=== PATIENT | female | born 1970 | race Caucasian/White ===

== ENCOUNTER 2018-09-22 13:35 | Observation (INO) | payer MEDICAID ==
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
[2018-09-22] MEDS ORDERED: Sodium Chloride 0.9% 2.5 ML Syringe FLUSH PRN (14:03)
[2018-09-22] MEDS ORDERED: Sodium Chloride 0.9% 10 ML Syringe FLUSH PRN (14:03)
[2018-09-22] MEDS ORDERED: LORazepam 2 MG/ML SDV IVPUSH ONE ×2 (14:41→15:27)
[2018-09-22] MEDS ORDERED: Ondansetron 4 MG/2 ML SDV IVPUSH ONE ×2 (14:53→17:49)
[2018-09-22] MEDS ORDERED: Morphine 2 MG/ML Syringe IVPUSH ONE (16:34)
[2018-09-22] MEDS ORDERED: Gadobenate Dimeglumine 529 MG/ML 20 ML SDV IVPUSH STA (19:02)
--- NOTE | 2018-09-22 19:02 | MR ---
INDICATION: Visual field defects TECHNIQUE: TOF and Spencer bolus MRA of the neck with 3D MIP reconstructions provided. All measurements are based on NASCET criteria. No comparisons. FINDINGS: Dominant right vertebral artery with small caliber left vertebral artery. The remainder of the visualized cervical carotids and vertebral arteries are unremarkable. Specifically, no evidence of suspicious narrowing or aneurysmal dilatation. IMPRESSION: Unremarkable MRA of the neck as far as visualized. Dictated by Jordan William MD @ 09/22/2018 7:01:12 PM Dictated by: Jordan William MD @ 09/22/2018 19:01:18 (Electronically Signed)
--- NOTE | 2018-09-22 19:02 | MR ---
INDICATION: Visual field defect TECHNIQUE: TOF MRA of COW with 3D MIP provided. No comparisons. FINDINGS: Dominant right vertebral artery is the primary supply the basilar artery. Small caliber, barely perceptible left vertebral artery is demonstrated which can be a developmental variant. origin of the right posterior cerebral artery. The remainder of the visualized first and second order intracranial vessels are unremarkable. Specifically, no suspicious narrowing or aneurysmal dilatation. IMPRESSION: Grossly unremarkable MRA of the head as far as visualized. Dictated by Jordan William MD @ 09/22/2018 7:00:16 PM Dictated by: Jordan William MD @ 09/22/2018 19:00:20 (Electronically Signed)
[2018-09-22] MEDS ORDERED: ALPRAZolam 0.5 MG Tab PO PRN ×2 (20:19→20:22)
[2018-09-23] MEDS: oxyCODONE 5 MG Tab PO PRN (07:02)
[2018-09-23 07:15] LABS: CHLORIDE,CL 105 mmol/L (98-107); SODIUM,NA 139 mmol/L (136-145)
[2018-09-23] MEDS: Aspirin 81 MG Tab.Chew PO SCH (09:02)
[2018-09-23 09:28] LABS: HEMOGLOBIN A1C 6.4 % (4.5-6.2)
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
[2018-09-23] MEDS ORDERED: metFORMIN 500 MG Tab PO SCH (17:00)
[2018-09-23] MEDS: Acetaminophen 325 MG Tab PO PRN (18:04)
[2018-09-23] MEDS: atorvaSTATin 40 MG Tab PO SCH (21:45)
[2018-09-24] MEDS: Acetaminophen 325 MG Tab PO PRN (06:53)
--- NOTE | 2018-09-24 07:22 | PCM.PN ---
- General Info Date of Service: 09/24/18 Admission Dx/Problem (Free Text): Admission Diagnosis/Problem Admission Diagnosis/Problem CVA, Cerebrovascular accident Subjective Update: The patient is a 48-year-old lady who had presented to the emergency department with a complaint of bilateral blurry vision and possible right arm weakness. The patient had been evaluated by ophthalmology and was found to have quadrantanopia. Subsequent MRI had revealed 2 right-sided thalamic strokes. Today the patient has has concerns with regards to her continued blurry vision. She has been somewhat tearful and depressed. The patient also today has been complaining of dizziness and lightheadedness. Functional Status: Reports: Pain Controlled, Tolerating Diet - Review of Systems General: Reports: No Symptoms HEENT: Reports: Headaches, Visual Changes Pulmonary: Reports: No Symptoms Cardiovascular: Reports: No Symptoms Gastrointestinal: Reports: No Symptoms Genitourinary: Reports: No Symptoms Musculoskeletal: Reports: No Symptoms Skin: Reports: No Symptoms Neurological: Reports: Dizziness Psychiatric: Reports: Depression - Patient Data Vitals - Most Recent: Last Vital Signs Temp 37.1 C 09/24/18 04:00 Pulse 78 09/24/18 04:00 Resp 16 09/24/18 04:00 BP 128/60 09/24/18 04:00 Pulse Ox 94 L 09/24/18 04:00 Weight - Most Recent: 97.885 kg I&O - Last 24 Hours: Intake & Output 09/23/18 09/24/18 09/24/18 22:59 06:59 14:59 Intake Total 1250 1617 Output Total 300 1000 Balance 950 617 Lab Results Last 24 Hours: Laboratory Results - last 24 hr 09/23/18 09/23/18 Range/Units 06:30 16:30 Hemoglobin A1c 6.4 H (4.5-6.2) % Urine Opiates Screen NEGATIVE (NEGATIVE) Ur Oxycodone Screen POSITIVE (NEGATIVE) Urine Methadone Screen NEGATIVE (NEGATIVE) Ur Barbiturates Screen NEGATIVE (NEGATIVE) Ur Phencyclidine Scrn NEGATIVE (NEGATIVE) Ur Amphetamine Screen NEGATIVE (NEGATIVE) U Methamphetamines Scrn NEGATIVE (NEGATIVE) U Benzodiazepines Scrn NEGATIVE (NEGATIVE) U Cocaine Metab Screen NEGATIVE (NEGATIVE) U Marijuana (THC) Screen NEGATIVE (NEGATIVE) Med Orders - Current: Current Medications Acetaminophen (Tylenol) 650 mg PO Q6H PRN PRN Reason: Pain Last Admin: 09/24/18 06:53 Dose: 650 mg Alprazolam (Xanax) 0.5 mg PO Q6H PRN PRN Reason: Anxiety Last Admin: 09/24/18 03:46 Dose: 0.5 mg Aspirin (Aspirin) 81 mg PO DAILY [facility] Last Admin: 09/23/18 09:02 Dose: 81 mg Atorvastatin Calcium (Lipitor) 80 mg PO BEDTIME [facility] Last Admin: 09/23/18 21:45 Dose: 80 mg Metformin HCl (Glucophage) 500 mg PO BIDMEALS [facility] Last Admin: 09/23/18 18:02 Dose: 500 mg Oxycodone HCl (Oxycodone) 5 mg PO Q4H PRN PRN Reason: Pain Last Admin: 09/23/18 07:02 Dose: 5 mg Sodium Chloride (Saline Flush) 10 ml FLUSH ASDIRECTED PRN PRN Reason: Keep Vein Open Sodium Chloride (Saline Flush) 2.5 ml FLUSH ASDIRECTED PRN PRN Reason: Keep Vein Open Discontinued Medications Alprazolam (Xanax) 49.4415 mg PO Q6H PRN PRN Reason: Anxiety Gadobenate Dimeglumine (Multihance) 20 ml IVPUSH ONETIME STA Stop: 09/22/18 19:03 Last Admin: 09/22/18 19:05 Dose: 16 ml Lorazepam (Ativan) 1 mg IVPUSH ONETIME ONE Stop: 09/22/18 14:42 Last Admin: 09/22/18 14:57 Dose: 1 mg Lorazepam (Ativan) 1 mg IVPUSH ONETIME ONE Stop: 09/22/18 15:28 Last Admin: 09/22/18 15:28 Dose: 1 mg Morphine Sulfate (Morphine) 4 mg IVPUSH ONETIME ONE Stop: 09/22/18 16:35 Last Admin: 09/22/18 16:45 Dose: 4 mg Ondansetron HCl (Zofran) 4 mg IVPUSH ONETIME ONE Stop: 09/22/18 14:54 Last Admin: 09/22/18 14:57 Dose: 4 mg Ondansetron HCl (Zofran) 4 mg IVPUSH ONETIME ONE Stop: 09/22/18 17:50 Last Admin: 09/22/18 18:13 Dose: 4 mg - Exam Quality Assessment: No: Supplemental Oxygen General: Alert, Oriented, Cooperative HEENT: Pupils Equal, Pupils Reactive, EOMI (No nystagmus), Mucous Membr. Moist/ [place] Neck: Supple, Trachea Midline Lungs: Clear to Auscultation, Normal Respiratory Effort Cardiovascular: Regular Rate, Regular Rhythm GI/Abdominal Exam: Normal Bowel Sounds, Soft, Non-Tender, No Distention (Female) Exam: Deferred Back Exam: Normal Inspection, Full Range of Motion Extremities: Normal Inspection, No Pedal Edema Skin: Warm, Dry, Intact Neurological: No New Focal Deficit Psy/Mental Status: Alert, Normal Affect, Normal Mood - Problem List & Annotations (1) CVA, Cerebrovascular accident SNOMED Code(s): 073407839 Code(s): I63.9 - CEREBRAL INFARCTION, UNSPECIFIED Status: Acute Priority : High Current Visit: Yes (2) Hypertension SNOMED Code(s): 59731852 Code(s): I10 - ESSENTIAL (PRIMARY) HYPERTENSION Status: Acute Priority: High Current Visit: Yes Qualifiers: Hypertension type: essential hypertension Qualified Code(s): I10 - Essential (primary) hypertension (3) Quadrantanopia SNOMED Code(s): 36249373 Code(s): H53.469 - HOMONYMOUS BILATERAL FIELD DEFECTS, UNSPECIFIED SIDE Status: Acute Priority: High Current Visit: Yes Qualifiers: Laterality: unspecified laterality Qualified Code(s): H53.469 - Homonymous bilateral field defects, unspecified side (4) Diarrhea SNOMED Code(s): 17225210 Code(s): R19.7 - DIARRHEA, UNSPECIFIED Status: Acute Priority: High Current Visit: Yes Qualifiers: Diarrhea type: unspecified type Qualified Code(s): R19.7 - Diarrhea, unspecified (5) Vision changes SNOMED Code(s): 291751247 Code(s): H53.9 - UNSPECIFIED VISUAL DISTURBANCE Status: Acute Priority: High Current Visit: Yes - Problem List Review Problem List Initiated/Reviewed/Updated: Yes - Plan Plan:: Assessment: #1. Acute ischemic stroke involving the posterior right hippocampus and right thalamus #2. Blurry vision #3. Prediabetes #4. Elevated BP Plan: #1. Admit to the floor for observation. Cardiac telemetry. Vitals per floor. Full code. #2. Aspirin 81mg PO daily #3. Atorvastatin 80mg PO qhs #4. Hgb A1c indicates 6.4% so she is by definition pre-diabetic. Will start on Metformin 500mg PO BID #5. Follow up on urine drug screen which hasn't been collected yet #6. Patient will be monitored for today. Will allow for permissive HTN. She can be started on an antihypertensive by her PCP at the outpatient visit. She will also follow up with neurology. The patient is a 48-year-old lady who had ischemic stroke of the right posterior hippocampus and right thalamus. She also has had right superior quadrantanopsia. The patient has some dizziness and as a result of this I have ordered meclizine 25 mg by mouth twice a day as necessary for her dizziness. Also the patient's blood pressure will be controlled with the use of losartan 25 mg by mouth daily. I've encouraged patient to ambulate. Likely she'll need PT OT to help with her dizziness at this presented be chronic. With regards to the patient's diarrhea encouraged observation for this and allow to resolve on its own. Meantime the patient will be monitored with her vital signs in order to keep her blood pressures less than 130 mmHg systolic. Repeat laboratory studies a been ordered.
[2018-09-24] MEDS: metFORMIN 500 MG Tab PO SCH (07:58)
[2018-09-24] MEDS: Meclizine 25 MG Tab PO PRN (07:58)
[2018-09-24] MEDS: Aspirin 81 MG Tab.Chew PO SCH (07:59)
[2018-09-24] MEDS: Losartan 50 MG Tab PO SCH (12:57)
[2018-09-24] MEDS: atorvaSTATin 40 MG Tab PO SCH (20:10)
[2018-09-25] MEDS: Meclizine 25 MG Tab PO PRN (02:37)
[2018-09-25] MEDS: Acetaminophen 325 MG Tab PO PRN (04:08)
[2018-09-25 06:44] LABS: CHLORIDE,CL 102 mmol/L (98-107); SODIUM,NA 136 mmol/L (136-145)
[2018-09-25] MEDS: metFORMIN 500 MG Tab PO SCH (07:58)
[2018-09-25] MEDS: oxyCODONE 5 MG Tab PO PRN (07:58)
[2018-09-25] MEDS: Losartan 50 MG Tab PO SCH (08:00)
[2018-09-25] MEDS: Aspirin 81 MG Tab.Chew PO SCH (08:01)
--- NOTE | 2018-09-25 09:53 | MR ---
EXAM DATE: 09/22/18 PATIENT'S AGE: 48 Patient: GRETCHEN ALVARADO Facility: [facility] Site . Site : 1970 Study: MRI-Head W/ and W/O Cont [id number] 6:23:11 PM Ordering Physician: Matt Castro Final Report: Indication: Visual field defect. Technique: Noncontrast sagittal T1, axial FLAIR, T2, diffusion, post contrast T1 weighted sequences are provided. No comparisons. Findings: There is a 1 centimeter region of restricted diffusion involving the posterior right hippocampus with a 13 millimeter region of restricted diffusion involving the right thalamus. These are compatible with acute infarcts. The ventricles, sulci and gyri are normal size, shape and contour for age. The midline structures are centrally located with no evidence of shift. There are no suspicious intra or extra-axial fluid collections. The post-contrast sequences are limited due to patient motion. No convincing suspicious regions of abnormal parenchymal enhancement. Expected flow voids in the cavernous carotids and basilar artery. Minimal scattered foci of increased T2 signal in the white matter of both cerebral hemispheres that is nonspecific. Impression: 1. Acute infarcts of the posterior right hippocampus and right thalamus. 2. Minimal scattered supratentorial white matter change that is non-specific. Differential considerations include changes related to diabetes, hypertension, collagen vascular disease or migranous headaches. 3. Preliminary results were called to ordering doctor at 1655 hours. Dictated by Jordan William MD @ 09/22/2018 6:58:50 PM Dictated by: Jordan William MD @ 09/22/2018 18:59:09 Signed by: Jordan William MD @09/22/2018 6:59:09 PM (Electronic Signature) Report Signed by Proxy. [facility]
--- NOTE | 2018-09-25 09:53 | PCM.DCSUM1 ---
<Salinas Carmona - Last Filed: 09/25/18 09:49> Discharge Summary - Hospital Course Free Text/Narrative:: Admission date: 09/23/2018 Discharge date: 09/25/2018 Admission diagnosis: #1. Acute ischemic stroke involving the posterior right hippocampus and right thalamus #2. Blurry vision #3. Prediabetes #4. Elevated BP Discharge diagnosis: #1. Acute ischemic stroke involving the posterior right hippocampus and right thalamus #2. Blurry vision #3. Prediabetes #4. HTN Hospital course: 48F presented to the ER w/ concerns of blurry vision and right arm weakness found to have findings as stated above on MRI. She was admitted primarily for observation. Patient did have an elevated BP, was started on losartan for this. Patient stated that her R arm felt uncomfortable secondary to the IV placement, rather than true weakness. Neuro exam was unremarkable aside from her continued complaints of left eye vision loss. She was discharged home and advised to take medications as prescribed, and to f/u with ophthalmology as scheduled along with establishing with a primary care provider. Return precautions were discussed. Discharge medications: #1. Aspirin 81mg PO daily #2. Losartan 25mg PO daily #3. Metformin 500mg PO BID (HgbA1c 6.4%) #4. Atorvastatin 80mg PO qhs - Discharge Data Discharge Date: 09/25/18 Discharge Disposition: Home, Self-Care 01 Condition: Fair - Patient Instructions Diet: Usual Diet as Tolerated Activity: As Tolerated Notify Provider of: Fever, Increased Pain, Nausea and/or Vomiting Other/Special Instructions: return if you experience worsening vision, numbness or tingling, confusion - Discharge Plan Prescriptions/Med Rec: Aspirin 81 mg PO DAILY 30 Days #30 tab.chew atorvaSTATin [Lipitor] 80 mg PO BEDTIME 30 Days #60 tablet Losartan [Cozaar] 25 mg PO DAILY 30 Days #30 tablet metFORMIN [Glucophage] 500 mg PO BID 30 Days #60 tablet Home Medications: Home Meds Aspirin 81 mg PO DAILY 30 Days #30 tab.chew 09/25/18 [Rx] Losartan [Cozaar] 25 mg PO DAILY 30 Days #30 tablet 09/25/18 [Rx] atorvaSTATin [Lipitor] 80 mg PO BEDTIME 30 Days #60 tablet 09/25/18 [Rx] metFORMIN [Glucophage] 500 mg PO BID 30 Days #60 tablet 09/25/18 [Rx] Patient Handouts: Glipizide; Metformin tablets, Losartan tablets, Transient Ischemic Attack, [id number], Aspirin and Your Heart, Atorvastatin tablets Forms: ED Department Discharge Referrals: Dewayne Burnett [Ordering Only Provider] - 10/06/18 9:00 am () Becki Trevizo MD [Physician] - 10/04/18 10:00 am PCP,Unknown [Ordering Only Provider] - - Discharge Summary/Plan Comment DC Time >30 min.: No - Patient Data Vitals - Most Recent: Last Vital Signs Temp 36.6 C 09/25/18 08:00 Pulse 75 09/25/18 08:00 Resp 18 09/25/18 08:00 BP 127/63 09/25/18 08:00 Pulse Ox 96 09/25/18 08:00 Weight - Most Recent: 97.885 kg I&O - Last 24 hours: Intake & Output 09/24/18 09/25/18 09/25/18 22:59 06:59 14:59 Intake Total 540 1160 Output Total 1050 1200 Balance -510 -40 Lab Results - Last 24 hrs: Laboratory Results - last 24 hr 09/25/18 09/25/18 Range/Units 06:02 06:02 WBC 12.61 H (4.0-11.0) K/uL RBC 4.99 (4.30-5.90) M/uL Hgb 14.7 (12.0-16.0) g/dL Hct 45.0 (36.0-46.0) % MCV 90.2 (80.0-98.0) fL MCH 29.5 (27.0-32.0) pg MCHC 32.7 (31.0-37.0) g/dL RDW Std Deviation 42.3 (28.0-62.0) fl RDW Coeff of Sarah 13 (11.0-15.0) % Plt Count 320 (150-400) K/uL MPV 10.80 (7.40-12.00) fL Add Manual Diff YES Neutrophils % (Manual) 68 (48.0-80.0) % Lymphocytes % (Manual) 21 (16.0-40.0) % Monocytes % (Manual) 5 (0.0-15.0) % Eosinophils % (Manual) 6 (0.0-7.0) % Nucleated RBC % 0.0 /100WBC Absolute Seg Neuts 8.6 H (1.4-5.7) Lymphocytes # (Manual) 2.6 H (0.6-2.4) Monocytes # (Manual) 0.6 (0.0-0.8) Eosinophils # (Manual) 0.8 H (0.0-0.7) Nucleated RBCs # 0 K/uL Sodium 136 (136-145) mmol/L Potassium 4.6 (3.5-5.1) mmol/L Chloride 102 (98-107) mmol/L Carbon Dioxide 28.7 (21.0-32.0) mmol/L BUN 14 (7.0-18.0) mg/dL Creatinine 0.7 (0.6-1.0) mg/dL Est Cr Clr Drug Dosing 94.29 mL/min Estimated GFR (MDRD) > 60.0 ml/min Glucose 109 H (74-106) mg/dL Calcium 9.9 (8.5-10.1) mg/dL Med Orders - Current: Current Medications Acetaminophen (Tylenol) 650 mg PO Q6H PRN PRN Reason: Pain Last Admin: 09/25/18 04:08 Dose: 650 mg Alprazolam (Xanax) 0.5 mg PO Q6H PRN PRN Reason: Anxiety Last Admin: 09/24/18 03:46 Dose: 0.5 mg Aspirin (Aspirin) 81 mg PO DAILY [facility] Last Admin: 09/25/18 08:01 Dose: 81 mg Atorvastatin Calcium (Lipitor) 80 mg PO BEDTIME [facility] Last Admin: 09/24/18 20:10 Dose: 80 mg Losartan Potassium (Cozaar) 25 mg PO DAILY [facility] Last Admin: 09/25/18 08:00 Dose: 25 mg Meclizine HCl (Antivert) 25 mg PO BID PRN PRN Reason: vertigo Last Admin: 09/25/18 02:37 Dose: 25 mg Metformin HCl (Glucophage) 500 mg PO DAILY@0800 [facility] Last Admin: 09/25/18 07:58 Dose: 500 mg Oxycodone HCl (Oxycodone) 5 mg PO Q4H PRN PRN Reason: Pain Last Admin: 09/25/18 07:58 Dose: 5 mg Sodium Chloride (Saline Flush) 10 ml FLUSH ASDIRECTED PRN PRN Reason: Keep Vein Open Sodium Chloride (Saline Flush) 2.5 ml FLUSH ASDIRECTED PRN PRN Reason: Keep Vein Open Discontinued Medications Alprazolam (Xanax) 49.4415 mg PO Q6H PRN PRN Reason: Anxiety Gadobenate Dimeglumine (Multihance) 20 ml IVPUSH ONETIME STA Stop: 09/22/18 19:03 Last Admin: 09/22/18 19:05 Dose: 16 ml Lorazepam (Ativan) 1 mg IVPUSH ONETIME ONE Stop: 09/22/18 14:42 Last Admin: 09/22/18 14:57 Dose: 1 mg Lorazepam (Ativan) 1 mg IVPUSH ONETIME ONE Stop: 09/22/18 15:28 Last Admin: 09/22/18 15:28 Dose: 1 mg Metformin HCl (Glucophage) 500 mg PO BIDMEALS [facility] Last Admin: 09/23/18 18:02 Dose: 500 mg Morphine Sulfate (Morphine) 4 mg IVPUSH ONETIME ONE Stop: 09/22/18 16:35 Last Admin: 09/22/18 16:45 Dose: 4 mg Ondansetron HCl (Zofran) 4 mg IVPUSH ONETIME ONE Stop: 09/22/18 14:54 Last Admin: 09/22/18 14:57 Dose: 4 mg Ondansetron HCl (Zofran) 4 mg IVPUSH ONETIME ONE Stop: 09/22/18 17:50 Last Admin: 09/22/18 18:13 Dose: 4 mg <Trevon Saleem - Last Filed: 09/25/18 11:48> Discharge Summary - Hospital Course HPI Initial Comments: I have seen and examined the patient independently of medical device engineer. I agree with the assessment and plan of care as outlined for this patient by the resident. Please see orders. The patient's primary concern at this point is secondary prevention for stroke. The patient is to follow-up with neurology as scheduled. - Discharge Diagnosis/Problem(s) (1) CVA, Cerebrovascular accident SNOMED Code(s): 092171086 ICD Code: I63.9 - CEREBRAL INFARCTION, UNSPECIFIED Status: Acute Priority : High Current Visit: Yes (2) Hypertension SNOMED Code(s): 07401012 ICD Code: I10 - ESSENTIAL (PRIMARY) HYPERTENSION Status: Acute Priority: High Current Visit: Yes Qualifiers: Hypertension type: essential hypertension Qualified Code(s): I10 - Essential (primary) hypertension (3) Quadrantanopia SNOMED Code(s): 17178746 ICD Code: H53.469 - HOMONYMOUS BILATERAL FIELD DEFECTS, UNSPECIFIED SIDE Status: Acute Priority: High Current Visit: Yes Qualifiers: Laterality: unspecified laterality Qualified Code(s): H53.469 - Homonymous bilateral field defects, unspecified side (4) Diarrhea SNOMED Code(s): 01489894 ICD Code: R19.7 - DIARRHEA, UNSPECIFIED Status: Acute Priority: High Current Visit: Yes Qualifiers: Diarrhea type: unspecified type Qualified Code(s): R19.7 - Diarrhea, unspecified (5) Vision changes SNOMED Code(s): 145956767 ICD Code: H53.9 - UNSPECIFIED VISUAL DISTURBANCE Status: Acute Priority: High Current Visit: Yes - Patient Data Vitals - Most Recent: Last Vital Signs Temp 36.6 C 09/25/18 08:00 Pulse 75 09/25/18 08:00 Resp 18 09/25/18 08:00 BP 127/63 09/25/18 08:00 Pulse Ox 96 09/25/18 08:00 I&O - Last 24 hours: Intake & Output 09/24/18 09/25/18 09/25/18 22:59 06:59 14:59 Intake Total 540 1160 Output Total 1050 1200 Balance -510 -40 Lab Results - Last 24 hrs: Laboratory Results - last 24 hr 09/25/18 09/25/18 Range/Units 06:02 06:02 WBC 12.61 H (4.0-11.0) K/uL RBC 4.99 (4.30-5.90) M/uL Hgb 14.7 (12.0-16.0) g/dL Hct 45.0 (36.0-46.0) % MCV 90.2 (80.0-98.0) fL MCH 29.5 (27.0-32.0) pg MCHC 32.7 (31.0-37.0) g/dL RDW Std Deviation 42.3 (28.0-62.0) fl RDW Coeff of Sarah 13 (11.0-15.0) % Plt Count 320 (150-400) K/uL MPV 10.80 (7.40-12.00) fL Add Manual Diff YES Neutrophils % (Manual) 68 (48.0-80.0) % Lymphocytes % (Manual) 21 (16.0-40.0) % Monocytes % (Manual) 5 (0.0-15.0) % Eosinophils % (Manual) 6 (0.0-7.0) % Nucleated RBC % 0.0 /100WBC Absolute Seg Neuts 8.6 H (1.4-5.7) Lymphocytes # (Manual) 2.6 H (0.6-2.4) Monocytes # (Manual) 0.6 (0.0-0.8) Eosinophils # (Manual) 0.8 H (0.0-0.7) Nucleated RBCs # 0 K/uL Sodium 136 (136-145) mmol/L Potassium 4.6 (3.5-5.1) mmol/L Chloride 102 (98-107) mmol/L Carbon Dioxide 28.7 (21.0-32.0) mmol/L BUN 14 (7.0-18.0) mg/dL Creatinine 0.7 (0.6-1.0) mg/dL Est Cr Clr Drug Dosing 94.29 mL/min Estimated GFR (MDRD) > 60.0 ml/min Glucose 109 H (74-106) mg/dL Calcium 9.9 (8.5-10.1) mg/dL Med Orders - Current: Current Medications Acetaminophen (Tylenol) 650 mg PO Q6H PRN PRN Reason: Pain Last Admin: 09/25/18 04:08 Dose: 650 mg Alprazolam (Xanax) 0.5 mg PO Q6H PRN PRN Reason: Anxiety Last Admin: 09/24/18 03:46 Dose: 0.5 mg Aspirin (Aspirin) 81 mg PO DAILY [facility] Last Admin: 09/25/18 08:01 Dose: 81 mg Atorvastatin Calcium (Lipitor) 80 mg PO BEDTIME [facility] Last Admin: 09/24/18 20:10 Dose: 80 mg Losartan Potassium (Cozaar) 25 mg PO DAILY [facility] Last Admin: 09/25/18 08:00 Dose: 25 mg Meclizine HCl (Antivert) 25 mg PO BID PRN PRN Reason: vertigo Last Admin: 09/25/18 02:37 Dose: 25 mg Metformin HCl (Glucophage) 500 mg PO DAILY@0800 [facility] Last Admin: 09/25/18 07:58 Dose: 500 mg Oxycodone HCl (Oxycodone) 5 mg PO Q4H PRN PRN Reason: Pain Last Admin: 09/25/18 07:58 Dose: 5 mg Sodium Chloride (Saline Flush) 10 ml FLUSH ASDIRECTED PRN PRN Reason: Keep Vein Open Sodium Chloride (Saline Flush) 2.5 ml FLUSH ASDIRECTED PRN PRN Reason: Keep Vein Open Discontinued Medications Alprazolam (Xanax) 49.4415 mg PO Q6H PRN PRN Reason: Anxiety Gadobenate Dimeglumine (Multihance) 20 ml IVPUSH ONETIME STA Stop: 09/22/18 19:03 Last Admin: 09/22/18 19:05 Dose: 16 ml Lorazepam (Ativan) 1 mg IVPUSH ONETIME ONE Stop: 09/22/18 14:42 Last Admin: 09/22/18 14:57 Dose: 1 mg Lorazepam (Ativan) 1 mg IVPUSH ONETIME ONE Stop: 09/22/18 15:28 Last Admin: 09/22/18 15:28 Dose: 1 mg Metformin HCl (Glucophage) 500 mg PO BIDMEALS [facility] Last Admin: 09/23/18 18:02 Dose: 500 mg Morphine Sulfate (Morphine) 4 mg IVPUSH ONETIME ONE Stop: 09/22/18 16:35 Last Admin: 09/22/18 16:45 Dose: 4 mg Ondansetron HCl (Zofran) 4 mg IVPUSH ONETIME ONE Stop: 09/22/18 14:54 Last Admin: 09/22/18 14:57 Dose: 4 mg Ondansetron HCl (Zofran) 4 mg IVPUSH ONETIME ONE Stop: 09/22/18 17:50 Last Admin: 09/22/18 18:13 Dose: 4 mg
== END 2018-09-25 12:00 | disposition home or self-care (01) ==
LOC: MW.ED 13:35 → MW.MS 19:42
PROVIDERS: ADMIT Internal Medicine; ATTEND Internal Medicine
DX: I63.9 Cerebral infarction, unspecified (principal); H53.8 Other visual disturbances; H53.461 Homonymous bilateral field defects, right side; I10 Essential (primary) hypertension; R73.03 Prediabetes; R19.7 Diarrhea, unspecified; Z79.82 Long term (current) use of aspirin; Z88.8 Allergy status to other drugs, medicaments and biological substances
CPT/HCPCS: 36415; 70544; 70549; 70553; 80048; 80061; 80305; 82962; 83036; 85025; 96374; 96375; 96376; 99285; A9270; A9577; J2060; J2270; J2405; G0378

== ENCOUNTER 2022-10-25 14:06 | Emergency (ER) | payer SELFPAY ==
[2022-10-25] MEDS ORDERED: Ketorolac 30 MG/ML SDV IM ONE (14:44)
[2022-10-25] MEDS ORDERED: Acetaminophen 325 MG Tab PO ONE (14:44)
[2022-10-25] MEDS ORDERED: Dexamethasone 10 MG/ML SDV PO ONE (14:44)
[2022-10-25] MEDS ORDERED: Prochlorperazine 10 MG Tab PO ONE (14:46)
[2022-10-25 15:04] LABS: CORONAVIRUS COVID-19 NAA NEGATIVE (NEGATIVE); INFLUENZA A NAA NEGATIVE (NEGATIVE); INFLUENZA B NAA NEGATIVE (NEGATIVE); RESPIRATORY SYNCYTIAL VIR NAA NEGATIVE (NEGATIVE)
== END 2022-10-25 15:45 | disposition home or self-care (01) ==
LOC: MW.ED 14:06
DX: R51.9 Headache, unspecified (principal); R11.0 Nausea; R10.13 Epigastric pain; I10 Essential (primary) hypertension; E11.9 Type 2 diabetes mellitus without complications; Z88.8 Allergy status to other drugs, medicaments and biological substances; Z20.822 Contact with and (suspected) exposure to COVID-19
CPT/HCPCS: 0241U; 96372; 99284; A9270; J1885; J8540; Q0164

== ENCOUNTER 2022-11-11 15:45 | Observation (INO) | payer SELFPAY ==
[~2022-11-11 15:45] MED LIST: Sodium Chloride 0.9% 10 ML Syringe FLUSH PRN; Sodium Chloride 0.9% 2.5 ML Syringe FLUSH PRN
[2022-11-11] MEDS ORDERED: Ondansetron 4 MG/2 ML SDV IVPUSH ONE ×2 (15:47→19:19)
[2022-11-11] MEDS ORDERED: Morphine 4 MG/ML Syringe IVPUSH ONE (15:47)
[2022-11-11] MEDS ORDERED: Aspirin 81 MG Tab.Chew PO ONE (15:47)
[2022-11-11 16:23] LABS: CARBON DIOXIDE,CO2 23.9 mmol/L (21.0-32.0); POTASSIUM,K 3.8 mmol/L (3.5-5.1)
[2022-11-11 17:44] LABS: HEMOGLOBIN A1C 12.9 %
[2022-11-11] MEDS ORDERED: Iopamidol 755 MG/ML 500 ML Multipack Bottle IVPUSH STA (18:32)
[2022-11-11] MEDS ORDERED: Glucagon,Human Recombinant 1 MG Vial IM PRN (18:47)
[2022-11-11] MEDS ORDERED: Insulin Regular, Human 100 Units/ML 10 ML Vial SUBCUT ONE (18:47)
[2022-11-11] MEDS ORDERED: 50% Dextrose in Water 50 ML Syringe IVPUSH PRN (18:47)
[2022-11-11] MEDS ORDERED: Sodium Chloride 0.9% 1,000 ML IV ONE (18:52)
[2022-11-11] MEDS ORDERED: cefTRIAXone 1 GM in Sodium Chloride 0.9% 50 ML IV ONE (18:53)
[2022-11-11] MEDS ORDERED: cefTRIAXone 1 GM Vial ONE (19:00)
[2022-11-11] MEDS ORDERED: Sodium Chloride 0.9% 50 ML ONE (19:00)
[2022-11-11] MEDS ORDERED: Insulin Glargine,Hum.Rec.Anlog 100 UNIT/ML 3 ML Pen SUBCUT SCH (21:00)
[2022-11-11] MEDS ORDERED: Acetaminophen 325 MG Tab PO PRN (21:52)
[2022-11-11] MEDS ORDERED: Ondansetron 4 MG/2 ML SDV IVPUSH PRN (21:52)
[2022-11-11] MEDS ORDERED: Insulin Aspart 100 Units/ML 3 ML Pen SUBCUT ONE (22:41)
[2022-11-12] MEDS ORDERED: Sodium Chloride 0.9% 1,000 ML IV SCH ×2 (00:15)
[2022-11-12] MEDS: Insulin Aspart 100 Units/ML 3 ML Pen SUBCUT SCH ×2 (02:29→07:43)
[2022-11-12 06:45] LABS: CARBON DIOXIDE,CO2 25.9 mmol/L (21.0-32.0); POTASSIUM,K 3.7 mmol/L (3.5-5.1)
[2022-11-12] MEDS ORDERED: Insulin Aspart 100 Units/ML 3 ML Pen SUBCUT SCH (11:30)
[2022-11-12] MEDS ORDERED: cefTRIAXone 1 GM in Sodium Chloride 0.9% 50 ML IV SCH (18:00)
== END 2022-11-12 15:10 | disposition home or self-care (01) ==
LOC: MW.ED 15:45 → MW.ICU 19:28
PROVIDERS: ADMIT Internal Medicine; ATTEND Internal Medicine
DX: R07.2 Precordial pain (principal); E11.9 Type 2 diabetes mellitus without complications; N39.0 Urinary tract infection, site not specified; I10 Essential (primary) hypertension; E78.00 Pure hypercholesterolemia, unspecified; Z79.4 Long term (current) use of insulin; Z79.899 Other long term (current) drug therapy; Z88.8 Allergy status to other drugs, medicaments and biological substances
CPT/HCPCS: 36415; 71045; 71045-26; 71275; 71275-26; 80048; 80053; 81001; 82947; 83036; 84484; 85025; 85379; 87086; 87088; 87186; 93005; 96361; 96365; 96375; 96376; 99221; 99285-25; A9270-GY; G0378; J0696; J1815-GY; J2270; J2405; J3490; J7030; J7050; Q9967

== ENCOUNTER 2023-08-13 08:56 | Observation (INO) | payer SELFPAY ==
[2023-08-13] MEDS ORDERED: Sodium Chloride 0.9% 1,000 ML IV ONE ×2 (09:06→10:28)
[2023-08-13 09:28] LABS: BASE EXCESS VENOUS -5.4 (-2.0-3.0); PH,VENOUS 7.4 (7.31-7.41)
[2023-08-13 09:36] LABS: BASOPHILS ABSOLUTE AUTO 0.08 K/uL (0.00-0.20); BASOPHILS PERCENT AUTO 0.6 % (0.0-1.0); EOSINOPHILS ABSOLUTE AUTO 0.09 K/uL (0.00-0.45); EOSINOPHILS PERCENT AUTO 0.7 % (0.0-6.0); HEMATOCRIT 44.3 % (37.0-47.0); HEMOGLOBIN 15.3 g/dL (12.0-16.0); IMMATURE GRAN ABSOLUTE AUTO 0.13 K/uL (0.00-0.05); LYMPHOCYTES ABSOLUTE AUTO 2.94 K/uL (1.00-4.80); LYMPHOCYTES PERCENT AUTO 23.6 % (24.0-44.0); MEAN CORPUSCULAR HEMOGLOBIN 29.6 pg (28.0-32.0); MEAN CORPUSCULAR HGB CONC 34.5 g/dL (32.0-36.0); MEAN CORPUSCULAR VOLUME 85.7 fL (83.0-99.0); MEAN PLATELET VOLUME 10.8 fL (9.4-12.3); MONOCYTES ABSOLUTE AUTO 0.89 K/uL (0.00-0.80); MONOCYTES PERCENT AUTO 7.1 % (0.0-8.0); NEUTROPHILS ABSOLUTE AUTO 8.34 K/uL (1.80-7.70); PLATELET COUNT,PLT 279 K/uL (150-400); RED BLOOD CELL COUNT 5.17 M/uL (4.10-5.30); WHITE BLOOD CELL COUNT,WBC 12.47 K/uL (3.9-11.3)
[2023-08-13 09:47] LABS: INR 1.07 (0.86-1.11); PTT,PARTIAL THROMBOPLSTIN TIME 37.1 SEC (23.9-30.7)
[2023-08-13 09:57] LABS: A/G RATIO 0.8 (0.9-1.6); ALANINE AMINOTRANSFERASE,ALT 54 IU/L (14-63); ALBUMIN 3.1 g/dL (3.4-5.0); ALKALINE PHOSPHATASE 97 U/L (46-116); ASPARTATE AMNIOTRANSFERASE,AST 34 IU/L (15-37); BILIRUBIN TOTAL 0.8 mg/dL (0.2-1.0); BLOOD UREA NITROGEN,BUN 18 mg/dL (7.0-18.0); CARBON DIOXIDE,CO2 19.3 mmol/L (21.0-32.0); CHLORIDE,CL 97 mmol/L (98-107); CREATINE KINASE,CK 238 U/L (26-308); CREATININE 0.8 mg/dL (0.6-1.0); EST CRCL DRUG DOSING (CG) 78.18 mL/min; ESTIMATED GFR 88 mL/min (>60); ETHANOL BLOOD MEDICAL <3 mg/dL; GLUCOSE RANDOM 339 mg/dL (74-106); LIPASE 26 U/L (16-77); MAGNESIUM 1.5 mg/dL (1.8-2.4); POTASSIUM,K 3.8 mmol/L (3.5-5.1); PROTEIN TOTAL,TP 7.1 g/dL (6.4-8.2); SODIUM,NA 133 mmol/L (136-145)
[2023-08-13] MEDS ORDERED: Insulin Regular, Human 100 Units/ML 10 ML Vial IVPUSH ONE (10:27)
[2023-08-13] MEDS ORDERED: Magnesium Sulfate/Water 2 GM in Premix Bag 1 BAG IV ONE (10:28)
[2023-08-13 10:47] LABS: LACTIC ACID 1.1 mmol/L (0.4-2.0)
[2023-08-13] MEDS ORDERED: Iopamidol 755 MG/ML 500 ML Multipack Bottle IVPUSH STA (12:23)
[2023-08-13 13:47] LABS: CALCIUM 8.5 mg/dL (8.5-10.1); CARBON DIOXIDE,CO2 20.6 mmol/L (21.0-32.0); CREATININE 0.8 mg/dL (0.6-1.0); EST CRCL DRUG DOSING (CG) 78.18 mL/min; POTASSIUM,K 3.9 mmol/L (3.5-5.1)
[2023-08-13] MEDS ORDERED: Glucagon,Human Recombinant 1 MG Vial IM PRN ×2 (16:03→17:22)
[2023-08-13] MEDS ORDERED: Polyethylene Glycol 3350 Powder 17 GM Packet PO PRN (16:03)
[2023-08-13] MEDS ORDERED: 50% Dextrose in Water 50 ML Syringe IVPUSH PRN ×2 (16:03→17:22)
[2023-08-13] MEDS ORDERED: Enoxaparin 40 MG/0.4 ML Syringe SUBCUT SCH (16:15)
[2023-08-13] MEDS ORDERED: Pantoprazole 40 MG in Sodium Chloride 0.9% 10 ML IVPUSH SCH (16:15)
[2023-08-13] MEDS: Insulin Aspart 100 Units/ML 3 ML Pen SUBCUT SCH (17:25)
[2023-08-13] MEDS ORDERED: Insulin Glargine,Hum.Rec.Anlog 100 UNIT/ML 3 ML Pen SUBCUT SCH (21:00)
[2023-08-13] MEDS ORDERED: Insulin Aspart 100 Units/ML 3 ML Pen SUBCUT ONE (21:00)
[2023-08-13] MEDS: Sodium Chloride 0.9% 1,000 ML IV SCH (21:30)
[2023-08-13 21:33] LABS: CALCIUM 8.5 mg/dL (8.5-10.1); CARBON DIOXIDE,CO2 18.9 mmol/L (21.0-32.0); EST CRCL DRUG DOSING (CG) 62.54 mL/min; POTASSIUM,K 3.7 mmol/L (3.5-5.1)
[2023-08-14] MEDS ORDERED: Insulin Aspart 100 Units/ML 3 ML Pen SUBCUT ONE ×2 (00:55→05:29)
[2023-08-14 05:19] LABS: AMPHETAMINES SCREEN, URINE NEGATIVE (CUTOFF=500); BARBITURATE SCREEN,URINE NEGATIVE (CUTOFF=200); BENZODIAZEPINES SCREEN,URINE NEGATIVE (CUTOFF=150); BUPRENORPHINE SCREEN,URINE NEGATIVE (CUTOFF=10); METHADONE SCREEN, URINE NEGATIVE (CUTOFF=200); METHAMPHETAMINES SCREEN, URINE NEGATIVE (CUTOFF=500); OXYCODONE SCREEN,URINE NEGATIVE (CUT0FF=100); PCP SCREEN,URINE NEGATIVE (CUTOFF=25); THC SCREEN,URINE 20 NG/ML NEGATIVE (CUTOFF=50)
[2023-08-14] MEDS: Sodium Chloride 0.9% 1,000 ML IV SCH (05:47)
[2023-08-14 06:45] LABS: BASOPHILS ABSOLUTE AUTO 0.08 K/uL (0.00-0.20); BASOPHILS PERCENT AUTO 0.8 % (0.0-1.0); EOSINOPHILS ABSOLUTE AUTO 0.15 K/uL (0.00-0.45); EOSINOPHILS PERCENT AUTO 1.5 % (0.0-6.0); HEMATOCRIT 40.2 % (37.0-47.0); HEMOGLOBIN 13.6 g/dL (12.0-16.0); IMMATURE GRAN ABSOLUTE AUTO 0.09 K/uL (0.00-0.05); IMMATURE GRAN PERCENT AUTO 0.9 % (0.0-0.4); LYMPHOCYTES ABSOLUTE AUTO 2.85 K/uL (1.00-4.80); LYMPHOCYTES PERCENT AUTO 29.1 % (24.0-44.0); MEAN CORPUSCULAR HEMOGLOBIN 29.1 pg (28.0-32.0); MEAN CORPUSCULAR HGB CONC 33.8 g/dL (32.0-36.0); MEAN CORPUSCULAR VOLUME 85.9 fL (83.0-99.0); MEAN PLATELET VOLUME 10.8 fL (9.4-12.3); MONOCYTES ABSOLUTE AUTO 0.69 K/uL (0.00-0.80); NEUTROPHILS ABSOLUTE AUTO 5.94 K/uL (1.80-7.70); NEUTROPHILS PERCENT AUTO 60.7 % (41.0-71.0); PLATELET COUNT,PLT 246 K/uL (150-400); RED BLOOD CELL COUNT 4.68 M/uL (4.10-5.30)
[2023-08-14 07:17] LABS: A/G RATIO 0.8 (0.9-1.6); ALBUMIN 2.7 g/dL (3.4-5.0); BILIRUBIN TOTAL 0.5 mg/dL (0.2-1.0); CALCIUM 8.5 mg/dL (8.5-10.1); CARBON DIOXIDE,CO2 24.6 mmol/L (21.0-32.0); CREATININE 0.7 mg/dL (0.6-1.0); EST CRCL DRUG DOSING (CG) 89.34 mL/min; MAGNESIUM 1.6 mg/dL (1.8-2.4); POTASSIUM,K 3.5 mmol/L (3.5-5.1); PROTEIN TOTAL,TP 6.2 g/dL (6.4-8.2)
[2023-08-14] MEDS: Insulin Aspart 100 Units/ML 3 ML Pen SUBCUT SCH ×4 (07:41→11:44)
== END 2023-08-14 13:23 | disposition home or self-care (01) ==
LOC: MW.ED 08:56 → MW.MS 15:37
PROVIDERS: ADMIT Internal Medicine; ATTEND Internal Medicine
DX: E11.65 Type 2 diabetes mellitus with hyperglycemia (principal); M54.50 Low back pain, unspecified; M25.552 Pain in left hip; Z79.899 Other long term (current) drug therapy; Z88.9 Allergy status to unspecified drugs, medicaments and biological substances; W19.XXXA Unspecified fall, initial encounter
CPT/HCPCS: 36415; 70450; 71260; 72125; 72128; 74177; 80048; 80053; 80305; 80307; 82009; 82550; 82803; 82947; 83605; 83690; 83735; 84484; 85025; 85610; 85730; 93005; 96361; 96365; 96372; 96375; 99285; A9270; C9113; G0378; J1650; J1815; J3475; J3490; J7030; Q9967; 72131-26

== ENCOUNTER 2024-08-24 09:47 | Inpatient (IN) | payer MEDICAID ==
[2024-08-24 10:39] LABS: BASOPHILS ABSOLUTE AUTO 0.05 K/uL (0.00-0.20); BASOPHILS PERCENT AUTO 0.4 % (0.0-1.0); EOSINOPHILS PERCENT AUTO 0.9 % (0.0-6.0); HEMATOCRIT 46.2 % (37.0-47.0); HEMOGLOBIN 15.2 g/dL (12.0-16.0); IMMATURE GRAN ABSOLUTE AUTO 0.09 K/uL (0.00-0.05); IMMATURE GRAN PERCENT AUTO 0.8 % (0.0-0.4); LYMPHOCYTES ABSOLUTE AUTO 2.92 K/uL (1.00-4.80); LYMPHOCYTES PERCENT AUTO 25.3 % (24.0-44.0); MEAN CORPUSCULAR HEMOGLOBIN 29.4 pg (28.0-32.0); MEAN CORPUSCULAR HGB CONC 32.9 g/dL (32.0-36.0); MEAN CORPUSCULAR VOLUME 89.4 fL (83.0-99.0); MEAN PLATELET VOLUME 10.7 fL (9.4-12.3); MONOCYTES ABSOLUTE AUTO 0.66 K/uL (0.00-0.80); MONOCYTES PERCENT AUTO 5.7 % (0.0-8.0); NEUTROPHILS PERCENT AUTO 66.9 % (41.0-71.0); PLATELET COUNT,PLT 231 K/uL (150-400); RED BLOOD CELL COUNT 5.17 M/uL (4.10-5.30); WHITE BLOOD CELL COUNT,WBC 11.52 K/uL (3.9-11.3)
[2024-08-24 11:14] LABS: A/G RATIO 0.8 (0.9-1.6); ALBUMIN 3.3 g/dL (3.4-5.0); BILIRUBIN TOTAL 0.5 mg/dL (0.2-1.0); CALCIUM 9.4 mg/dL (8.5-10.1); CARBON DIOXIDE,CO2 28.8 mmol/L (21.0-32.0); CREATININE 0.7 mg/dL (0.6-1.0); EST CRCL DRUG DOSING (CG) 81.71 mL/min; POTASSIUM,K 4.1 mmol/L (3.5-5.1); PROTEIN TOTAL,TP 7.4 g/dL (6.4-8.2)
[2024-08-24 11:21] LABS: BILIRUBIN,URINE NEGATIVE (NEGATIVE); COLOR,URINE YELLOW; GLUCOSE,URINE NEGATIVE (NEGATIVE); KETONES,URINE 15 mg/dL (NEGATIVE); LEUKOCYTE ESTERASE,URINE TRACE (NEGATIVE); NITRITE,URINE POSITIVE (NEGATIVE); OCCULT BLOOD,URINE NEGATIVE (NEGATIVE); PROTEIN,URINE NEGATIVE (NEGATIVE); UROBILINOGEN,URINE 0.2 EU/dL (<2.0)
[2024-08-24 11:32] LABS: RBC,URINE 0-2 (0-2/HPF)
[2024-08-24 11:33] LABS: APPEARANCE,URINE CLOUDY; EPITHELIAL CELLS,URINE MODERATE (NONE-FEW)
[2024-08-24 11:34] LABS: BACTERIA,URINE 3+ (NEGATIVE)
[2024-08-24] MEDS ORDERED: Sodium Chloride 0.9% 2.5 ML Syringe FLUSH PRN (12:14)
[2024-08-24] MEDS ORDERED: Sodium Chloride 0.9% 10 ML Syringe FLUSH PRN (12:14)
[2024-08-24] MEDS: cefTRIAXone 1 GM Vial IM ONE (12:52)
[2024-08-24] MEDS: cefTRIAXone 1 GM in Sodium Chloride 0.9% 50 ML IV ONE (12:57)
[2024-08-24] MEDS ORDERED: Acetaminophen 325 MG Tab PO PRN (13:26)
[2024-08-24] MEDS ORDERED: Polyethylene Glycol 3350 Powder 17 GM Packet PO PRN (13:26)
[2024-08-24 13:54] LABS: HEMOGLOBIN A1C 8.6 %
[2024-08-24] MEDS ORDERED: 50% Dextrose in Water 50 ML Syringe IVPUSH PRN (14:01)
[2024-08-24] MEDS ORDERED: Glucagon,Human Recombinant 1 MG Vial IM PRN (14:01)
[2024-08-24] MEDS: Lisinopril 10 MG Tab PO SCH (14:28)
[2024-08-24] MEDS: Sertraline 50 MG Tab PO SCH (14:29)
[2024-08-24] MEDS: Non-Formulary Medication 1 Each (Lisinopril 20 MG Tablet) PO SCH (15:02)
[2024-08-24] MEDS: Insulin Aspart 100 Units/ML 3 ML Pen SUBCUT SCH (16:55)
[2024-08-24] MEDS: Insulin Glargine,Hum.Rec.Anlog 100 UNIT/ML 3 ML Pen SUBCUT SCH (20:36)
[2024-08-25 06:02] LABS: BASOPHILS ABSOLUTE AUTO 0.06 K/uL (0.00-0.20); BASOPHILS PERCENT AUTO 0.6 % (0.0-1.0); EOSINOPHILS ABSOLUTE AUTO 0.18 K/uL (0.00-0.45); EOSINOPHILS PERCENT AUTO 1.7 % (0.0-6.0); HEMATOCRIT 42.9 % (37.0-47.0); HEMOGLOBIN 14.2 g/dL (12.0-16.0); IMMATURE GRAN ABSOLUTE AUTO 0.06 K/uL (0.00-0.05); IMMATURE GRAN PERCENT AUTO 0.6 % (0.0-0.4); LYMPHOCYTES ABSOLUTE AUTO 3.77 K/uL (1.00-4.80); LYMPHOCYTES PERCENT AUTO 36.1 % (24.0-44.0); MEAN CORPUSCULAR HEMOGLOBIN 29.6 pg (28.0-32.0); MEAN CORPUSCULAR HGB CONC 33.1 g/dL (32.0-36.0); MEAN CORPUSCULAR VOLUME 89.6 fL (83.0-99.0); MEAN PLATELET VOLUME 11.2 fL (9.4-12.3); MONOCYTES ABSOLUTE AUTO 0.67 K/uL (0.00-0.80); MONOCYTES PERCENT AUTO 6.4 % (0.0-8.0); NEUTROPHILS ABSOLUTE AUTO 5.69 K/uL (1.80-7.70); NEUTROPHILS PERCENT AUTO 54.6 % (41.0-71.0); PLATELET COUNT,PLT 221 K/uL (150-400); RED BLOOD CELL COUNT 4.79 M/uL (4.10-5.30); WHITE BLOOD CELL COUNT,WBC 10.43 K/uL (3.9-11.3)
[2024-08-25 06:35] LABS: A/G RATIO 0.8 (0.9-1.6); BILIRUBIN TOTAL 0.4 mg/dL (0.2-1.0); CALCIUM 8.9 mg/dL (8.5-10.1); CARBON DIOXIDE,CO2 25.6 mmol/L (21.0-32.0); CREATININE 0.8 mg/dL (0.6-1.0); EST CRCL DRUG DOSING (CG) 71.5 mL/min; MAGNESIUM 1.9 mg/dL (1.8-2.4); POTASSIUM,K 3.8 mmol/L (3.5-5.1); PROTEIN TOTAL,TP 6.9 g/dL (6.4-8.2)
[2024-08-25] MEDS ORDERED: Sertraline 50 MG Tab PO SCH (09:00)
[2024-08-25] MEDS: cefTRIAXone 1 GM in Sodium Chloride 0.9% 50 ML IV SCH (11:51)
[2024-08-25] MEDS: Insulin Glargine,Hum.Rec.Anlog 100 UNIT/ML 3 ML Pen SUBCUT SCH (21:07)
[2024-08-26 05:53] LABS: BASOPHILS ABSOLUTE AUTO 0.07 K/uL (0.00-0.20); BASOPHILS PERCENT AUTO 0.7 % (0.0-1.0); EOSINOPHILS ABSOLUTE AUTO 0.26 K/uL (0.00-0.45); EOSINOPHILS PERCENT AUTO 2.6 % (0.0-6.0); HEMATOCRIT 44.3 % (37.0-47.0); HEMOGLOBIN 14.3 g/dL (12.0-16.0); IMMATURE GRAN ABSOLUTE AUTO 0.07 K/uL (0.00-0.05); IMMATURE GRAN PERCENT AUTO 0.7 % (0.0-0.4); LYMPHOCYTES ABSOLUTE AUTO 3.76 K/uL (1.00-4.80); LYMPHOCYTES PERCENT AUTO 37.6 % (24.0-44.0); MEAN CORPUSCULAR HEMOGLOBIN 29.2 pg (28.0-32.0); MEAN CORPUSCULAR HGB CONC 32.3 g/dL (32.0-36.0); MEAN CORPUSCULAR VOLUME 90.4 fL (83.0-99.0); MEAN PLATELET VOLUME 11.2 fL (9.4-12.3); MONOCYTES ABSOLUTE AUTO 0.63 K/uL (0.00-0.80); MONOCYTES PERCENT AUTO 6.3 % (0.0-8.0); NEUTROPHILS ABSOLUTE AUTO 5.21 K/uL (1.80-7.70); NEUTROPHILS PERCENT AUTO 52.1 % (41.0-71.0); PLATELET COUNT,PLT 202 K/uL (150-400)
[2024-08-26 06:22] LABS: A/G RATIO 0.8 (0.9-1.6); ALBUMIN 3.1 g/dL (3.4-5.0); BILIRUBIN TOTAL 0.3 mg/dL (0.2-1.0); CALCIUM 9.3 mg/dL (8.5-10.1); CARBON DIOXIDE,CO2 26.6 mmol/L (21.0-32.0); CREATININE 0.7 mg/dL (0.6-1.0); EST CRCL DRUG DOSING (CG) 81.71 mL/min; MAGNESIUM 1.9 mg/dL (1.8-2.4); POTASSIUM,K 4.3 mmol/L (3.5-5.1)
[2024-08-26] MEDS ORDERED: TOLTERODINE 2 MG PO SCH (09:00)
[2024-08-26] MEDS: Insulin Glargine,Hum.Rec.Anlog 100 UNIT/ML 3 ML Pen SUBCUT SCH (21:35)
[2024-08-27 07:54] LABS: BASOPHILS ABSOLUTE AUTO 0.05 K/uL (0.00-0.20); BASOPHILS PERCENT AUTO 0.5 % (0.0-1.0); EOSINOPHILS PERCENT AUTO 2.1 % (0.0-6.0); HEMATOCRIT 42.2 % (37.0-47.0); HEMOGLOBIN 14.3 g/dL (12.0-16.0); IMMATURE GRAN PERCENT AUTO 1.1 % (0.0-0.4); LYMPHOCYTES PERCENT AUTO 34.4 % (24.0-44.0); MEAN CORPUSCULAR HGB CONC 33.9 g/dL (32.0-36.0); MEAN CORPUSCULAR VOLUME 88.5 fL (83.0-99.0); MEAN PLATELET VOLUME 10.8 fL (9.4-12.3); MONOCYTES ABSOLUTE AUTO 0.55 K/uL (0.00-0.80); MONOCYTES PERCENT AUTO 5.9 % (0.0-8.0); NEUTROPHILS ABSOLUTE AUTO 5.21 K/uL (1.80-7.70); PLATELET COUNT,PLT 233 K/uL (150-400); RED BLOOD CELL COUNT 4.77 M/uL (4.10-5.30); WHITE BLOOD CELL COUNT,WBC 9.31 K/uL (3.9-11.3)
[2024-08-27 08:24] LABS: CALCIUM 9.4 mg/dL (8.5-10.1); CARBON DIOXIDE,CO2 25.3 mmol/L (21.0-32.0); CREATININE 0.7 mg/dL (0.6-1.0); EST CRCL DRUG DOSING (CG) 81.71 mL/min; MAGNESIUM 1.7 mg/dL (1.8-2.4); POTASSIUM,K 4.5 mmol/L (3.5-5.1)
[2024-08-27] MEDS: Nitrofurantoin Monohydrate/Macrocrystalline 100 MG Cap PO SCH (11:18)
[2024-08-27] MEDS: Trospium 20 MG Tab PO SCH (12:35)
[2024-08-27] MEDS: Insulin Aspart 100 Units/ML 3 ML Pen SUBCUT SCH (16:15)
[2024-08-27] MEDS: Insulin Glargine,Hum.Rec.Anlog 100 UNIT/ML 3 ML Pen SUBCUT SCH (21:20)
[2024-08-27] MEDS: Iopamidol 755 Mg/ML 100 ML Bottle IVPUSH ONE (22:40)
[2024-08-27] MEDS: Iopamidol 755 MG/ML 500 ML Multipack Bottle IVPUSH ONE (22:41)
[2024-08-28 08:55] LABS: BASOPHILS ABSOLUTE AUTO 0.06 K/uL (0.00-0.20); BASOPHILS PERCENT AUTO 0.6 % (0.0-1.0); EOSINOPHILS ABSOLUTE AUTO 0.16 K/uL (0.00-0.45); EOSINOPHILS PERCENT AUTO 1.6 % (0.0-6.0); HEMATOCRIT 46.4 % (37.0-47.0); HEMOGLOBIN 15.5 g/dL (12.0-16.0); LYMPHOCYTES ABSOLUTE AUTO 2.93 K/uL (1.00-4.80); LYMPHOCYTES PERCENT AUTO 28.8 % (24.0-44.0); MEAN CORPUSCULAR HEMOGLOBIN 29.5 pg (28.0-32.0); MEAN CORPUSCULAR HGB CONC 33.4 g/dL (32.0-36.0); MEAN CORPUSCULAR VOLUME 88.2 fL (83.0-99.0); MEAN PLATELET VOLUME 10.8 fL (9.4-12.3); MONOCYTES ABSOLUTE AUTO 0.37 K/uL (0.00-0.80); MONOCYTES PERCENT AUTO 3.6 % (0.0-8.0); NEUTROPHILS ABSOLUTE AUTO 6.55 K/uL (1.80-7.70); NEUTROPHILS PERCENT AUTO 64.4 % (41.0-71.0); PLATELET COUNT,PLT 276 K/uL (150-400); RED BLOOD CELL COUNT 5.26 M/uL (4.10-5.30); WHITE BLOOD CELL COUNT,WBC 10.17 K/uL (3.9-11.3)
[2024-08-28 09:23] LABS: CALCIUM 9.6 mg/dL (8.5-10.1); CARBON DIOXIDE,CO2 27.7 mmol/L (21.0-32.0); CREATININE 0.9 mg/dL (0.6-1.0); EST CRCL DRUG DOSING (CG) 63.55 mL/min; MAGNESIUM 1.7 mg/dL (1.8-2.4); POTASSIUM,K 4.9 mmol/L (3.5-5.1)
[2024-08-28] MEDS: Insulin Glargine,Hum.Rec.Anlog 100 UNIT/ML 3 ML Pen SUBCUT SCH (21:47)
[2024-08-29 05:41] LABS: BASOPHILS ABSOLUTE AUTO 0.08 K/uL (0.00-0.20); BASOPHILS PERCENT AUTO 0.6 % (0.0-1.0); EOSINOPHILS PERCENT AUTO 1.5 % (0.0-6.0); HEMATOCRIT 45.2 % (37.0-47.0); HEMOGLOBIN 15.2 g/dL (12.0-16.0); IMMATURE GRAN ABSOLUTE AUTO 0.16 K/uL (0.00-0.05); IMMATURE GRAN PERCENT AUTO 1.2 % (0.0-0.4); LYMPHOCYTES ABSOLUTE AUTO 4.35 K/uL (1.00-4.80); LYMPHOCYTES PERCENT AUTO 33.6 % (24.0-44.0); MEAN CORPUSCULAR HEMOGLOBIN 29.6 pg (28.0-32.0); MEAN CORPUSCULAR HGB CONC 33.6 g/dL (32.0-36.0); MEAN CORPUSCULAR VOLUME 88.1 fL (83.0-99.0); MEAN PLATELET VOLUME 11.1 fL (9.4-12.3); MONOCYTES ABSOLUTE AUTO 0.71 K/uL (0.00-0.80); MONOCYTES PERCENT AUTO 5.5 % (0.0-8.0); NEUTROPHILS ABSOLUTE AUTO 7.46 K/uL (1.80-7.70); NEUTROPHILS PERCENT AUTO 57.6 % (41.0-71.0); PLATELET COUNT,PLT 250 K/uL (150-400); RED BLOOD CELL COUNT 5.13 M/uL (4.10-5.30); WHITE BLOOD CELL COUNT,WBC 12.96 K/uL (3.9-11.3)
[2024-08-29 06:11] LABS: CALCIUM 9.5 mg/dL (8.5-10.1); CARBON DIOXIDE,CO2 26.2 mmol/L (21.0-32.0); CREATININE 0.8 mg/dL (0.6-1.0); EST CRCL DRUG DOSING (CG) 71.5 mL/min; MAGNESIUM 1.8 mg/dL (1.8-2.4); POTASSIUM,K 4.5 mmol/L (3.5-5.1)
[2024-08-29 13:53] LABS: APPEARANCE,URINE CLEAR; BILIRUBIN,URINE NEGATIVE (NEGATIVE); COLOR,URINE YELLOW; GLUCOSE,URINE NEGATIVE (NEGATIVE); KETONES,URINE NEGATIVE (NEGATIVE); LEUKOCYTE ESTERASE,URINE NEGATIVE (NEGATIVE); NITRITE,URINE NEGATIVE (NEGATIVE); OCCULT BLOOD,URINE NEGATIVE (NEGATIVE); PROTEIN,URINE NEGATIVE (NEGATIVE); UROBILINOGEN,URINE 0.2 EU/dL (<2.0)
[2024-08-29] MEDS: Insulin Glargine,Hum.Rec.Anlog 100 UNIT/ML 3 ML Pen SUBCUT SCH (21:05)
[2024-08-30 05:53] LABS: BASOPHILS ABSOLUTE AUTO 0.06 K/uL (0.00-0.20); BASOPHILS PERCENT AUTO 0.5 % (0.0-1.0); EOSINOPHILS ABSOLUTE AUTO 0.21 K/uL (0.00-0.45); EOSINOPHILS PERCENT AUTO 1.9 % (0.0-6.0); HEMATOCRIT 44.1 % (37.0-47.0); HEMOGLOBIN 14.9 g/dL (12.0-16.0); IMMATURE GRAN ABSOLUTE AUTO 0.12 K/uL (0.00-0.05); IMMATURE GRAN PERCENT AUTO 1.1 % (0.0-0.4); LYMPHOCYTES ABSOLUTE AUTO 4.09 K/uL (1.00-4.80); LYMPHOCYTES PERCENT AUTO 36.6 % (24.0-44.0); MEAN CORPUSCULAR HGB CONC 33.8 g/dL (32.0-36.0); MEAN CORPUSCULAR VOLUME 88.9 fL (83.0-99.0); MEAN PLATELET VOLUME 11.1 fL (9.4-12.3); MONOCYTES ABSOLUTE AUTO 0.67 K/uL (0.00-0.80); NEUTROPHILS ABSOLUTE AUTO 6.02 K/uL (1.80-7.70); NEUTROPHILS PERCENT AUTO 53.9 % (41.0-71.0); PLATELET COUNT,PLT 232 K/uL (150-400); RED BLOOD CELL COUNT 4.96 M/uL (4.10-5.30); WHITE BLOOD CELL COUNT,WBC 11.17 K/uL (3.9-11.3)
[2024-08-30 06:12] LABS: CALCIUM 9.2 mg/dL (8.5-10.1); CREATININE 0.8 mg/dL (0.6-1.0); EST CRCL DRUG DOSING (CG) 71.5 mL/min; MAGNESIUM 1.9 mg/dL (1.8-2.4); POTASSIUM,K 4.4 mmol/L (3.5-5.1)
[2024-08-30] MEDS: Insulin Glargine,Hum.Rec.Anlog 100 UNIT/ML 3 ML Pen SUBCUT SCH (20:10)
[2024-08-31 08:14] LABS: BASOPHILS ABSOLUTE AUTO 0.08 K/uL (0.00-0.20); BASOPHILS PERCENT AUTO 0.8 % (0.0-1.0); EOSINOPHILS ABSOLUTE AUTO 0.16 K/uL (0.00-0.45); EOSINOPHILS PERCENT AUTO 1.5 % (0.0-6.0); HEMOGLOBIN 15.3 g/dL (12.0-16.0); IMMATURE GRAN ABSOLUTE AUTO 0.12 K/uL (0.00-0.05); IMMATURE GRAN PERCENT AUTO 1.1 % (0.0-0.4); LYMPHOCYTES ABSOLUTE AUTO 3.99 K/uL (1.00-4.80); LYMPHOCYTES PERCENT AUTO 37.9 % (24.0-44.0); MEAN CORPUSCULAR HEMOGLOBIN 29.9 pg (28.0-32.0); MEAN CORPUSCULAR HGB CONC 33.3 g/dL (32.0-36.0); MEAN CORPUSCULAR VOLUME 89.8 fL (83.0-99.0); MEAN PLATELET VOLUME 11.2 fL (9.4-12.3); MONOCYTES ABSOLUTE AUTO 0.59 K/uL (0.00-0.80); MONOCYTES PERCENT AUTO 5.6 % (0.0-8.0); NEUTROPHILS ABSOLUTE AUTO 5.58 K/uL (1.80-7.70); NEUTROPHILS PERCENT AUTO 53.1 % (41.0-71.0); PLATELET COUNT,PLT 259 K/uL (150-400); RED BLOOD CELL COUNT 5.12 M/uL (4.10-5.30); WHITE BLOOD CELL COUNT,WBC 10.52 K/uL (3.9-11.3)
[2024-09-01 06:26] LABS: CALCIUM 9.4 mg/dL (8.5-10.1); CARBON DIOXIDE,CO2 26.2 mmol/L (21.0-32.0); CREATININE 0.8 mg/dL (0.6-1.0); EST CRCL DRUG DOSING (CG) 71.5 mL/min; MAGNESIUM 1.9 mg/dL (1.8-2.4); POTASSIUM,K 4.5 mmol/L (3.5-5.1)
== END 2024-09-03 09:40 | DRG 690 ==
LOC: MW.ED 09:47 → MW.MS 12:39 → UNDODISIN 08-27 13:30
PROVIDERS: ADMIT Family Medicine; ATTEND Family Medicine
DX: N30.01 Acute cystitis with hematuria (principal); E78.5 Hyperlipidemia, unspecified; I10 Essential (primary) hypertension; E78.00 Pure hypercholesterolemia, unspecified; R29.6 Repeated falls; E11.42 Type 2 diabetes mellitus with diabetic polyneuropathy; F32.A Depression, unspecified; Z79.899 Other long term (current) drug therapy; Z91.81 History of falling; Z88.8 Allergy status to other drugs, medicaments and biological substances; Z79.4 Long term (current) use of insulin
CPT/HCPCS: 36415; 70450; 70450-26; 71046; 71046-26; 74177; 74177-26; 80048; 80053; 81001; 81003; 82947; 83036; 83735; 85025; 87086; 87088; 87186; 93005; 93010; 97110-GP; 97116-GP; 97161-GP; 97165-GO; 97530-GP; 99285; A9270-GY; J0696; J1815-GY; J3490